=== PATIENT | female | born 1925 | race Caucasian/White ===

== ENCOUNTER 2016-10-02 08:41 | Day surgery (SDC) | payer MEDICARE, BC ==
[2016-09-27 12:03] LABS: HEMATOCRIT 40.1 % (36.0-48.0); HEMOGLOBIN 12.9 g/dL (12.0-16.0)
[2016-09-27 13:24] LABS: A/G RATIO 1.1 (0.7-1.9); ALBUMIN 3.6 G/DL (3.5-5.0); ALKALINE PHOSPHATASE 74 U/L (45-117); CALCIUM, SERUM 9.1 MG/DL (8.5-10.4); CHLORIDE, SERUM 102 MMOL/L (96-112); CO2 (CARBON DIOXIDE) 31 MMOL/L (24-34); CREATININE 0.97 MG/DL (0.55-1.02); GFR AFRICAN AMERICAN 60 ML/MIN (>=60); GFR NON AFRICAN AMERICAN 52 ML/MIN (>=60); GLOBULIN 3.4 G/DL (2.5-4.1); GLUCOSE, SERUM 97 MG/DL (60-99); SGOT(AST) 21 U/L (5-40); SGPT(ALT) 18 U/L (5-65); SODIUM, SERUM 142 MMOL/L (135-148); TOTAL BILIRUBIN 1.1 MG/DL (0-1.2)
[2016-09-27 13:26] LABS: BUN (BLOOD UREA NITROGEN) 21 MG/DL (6-23); POTASSIUM, SERUM 4.9 MMOL/L (3.5-5.3)
--- NOTE | ~2016-10-02 | OP ---
Record Of Operation [facility] [address] [place]. [address] NAME: GRAEME LU : [birth year] STATUS : [facility]#: [id number] AGE: 89 ADM/REG DATE : 10/02/16 MR#: [id number] REPORT SERV DATE: 10/03/16 DICTATED BY: ROEL HOROWITZ JR. DATE: 10/02/16 REPORT STATUS : Draft TRANSCRIBED BY: TIMMY DATE: 10/02/16 DATE OF PROCEDURE: 10/02/2016 REASON FOR SURGERY: This 89-year-old patient presents with a history of having had a lesion in her left breast initially seen on CT scan. It was small and initially not seen on ultrasound but had a small mammographic density. Followup showed stability a year's time. Two years past and new mammogram showed some progression. 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 This makes it intermediate grade but still should be favorable tumor with minimal chance of impact on her survival, especially considering her active cardiopulmonary disease. PREOPERATIVE DIAGNOSIS: Carcinoma, left breast. POSTOPERATIVE DIAGNOSIS: Carcinoma, left breast. SURGEON: Roel Horowitz M.D. SURGERY PERFORMED: Left breast segmentectomy. PROCEDURE IN DETAIL: Under general anesthesia, the patient was prepped and draped in supine position in the usual sterile fashion. A curvilinear incision was made over the palpable mass in the lower outer quadrant on the left. Flaps were elevated in each direction and a 4 cm sphere of tissue was removed and oriented for pathology. I had attended the initial sectioning in the superficial 12 o'clock to 3 o'clock. Superficial 3 o'clock margin was somewhat close. Clear margin is evident but it is hoped to avoid postoperative radiation therapy, and therefore, an additional disc of tissue from 12 o'clock to 4 o'clock was taken measuring 3.5 x 3.5 x 0.5 cm. It involves basically one-third of the wall of the previous cavity. It was removed and oriented for pathology. The wound was irrigated. Hemostasis was obtained. The wound was closed with two layers of Monocryl. The patient tolerated the procedure well without complications. ESTIMATED BLOOD LOSS: 5 mL. SPONGE COUNT: Correct. MR/TIMMY Roel Horowitz Jr., M.D. / [id number] CC: Record Of Operation [facility] [address] [place]. [address] NAME: GRAEME LU : [birth year] STATUS : [facility] PAT#: [id number] AGE: 89 ADM/REG DATE : 10/02/16 MR#: [id number] REPORT SERV DATE: 10/03/16 DICTATED BY: ROEL HOROWITZ JR. DATE: 10/02/16 REPORT STATUS : Draft TRANSCRIBED BY: RADHAL DATE: 10/02/16 Geeta Diaz Jr., M.D. Dannis Hood Jr., M.D. Joshua Willis, M.D. Michael T Czarnecki, M.D.
[~2016-10-02 08:41] MED LIST: ALLEGRA180 PO; ASABAYER PO; BILBERRY500 MG PO; BRIMONIDINE0.2 % OPH; COZ50 PO; DEMA20 PO; DEMADEX5 MG PO; DIOVAN320 MG PO; DORZOLAMIDE2 % OP; KLOR-CON M2020 MEQ PO; NORV5 PO; PERFOROM INH; PRAVAC PO; TRUSOPT2 % OPH; ULTRAM50 PO; VITAMIN D31000 UNIT PO; VITC500 PO; XALAT OPH
[2016-10-02 09:22] LABS: BASOPHILS 0.3 %; BASOPHILS ABSOLUTE 0.02 10/3/uL (0.0-0.16); EOSINOPHILS 0.9 %; EOSINOPHILS ABSOLUTE 0.06 10/3/uL (0.0-0.53); HEMATOCRIT 40.6 % (36.0-48.0); HEMOGLOBIN 13.7 g/dL (12.0-16.0); IMMATURE GRANULOCYTES 0.1 %; IMMATURE GRANULOCYTES ABSOLUTE 0.01 10/3/uL (0.0-0.11); LYMPHOCYTES 18.4 %; LYMPHOCYTES ABSOLUTE 1.24 10/3/uL (0.67-4.30); MANUAL DIFF NO %; MEAN CORPUS HGB CONC 33.7 g/dL (32.0-36.0); MEAN CORPUSCULAR HEMOGLOB 31.6 pg (26.0-34.0); MEAN CORPUSCULAR VOLUME 93.8 fL (80-100); MEAN PLATELET VOLUME 9.4 fL (9.2-13.0); MONOCYTES 8.2 %; MONOCYTES ABSOLUTE 0.55 10/3/uL (0.21-1.20); NEUTROPHILS 72.1 %; NEUTROPHILS ABSOLUTE 4.85 10/3/uL (2.02-8.40); PLATELET COUNT 169 10/3/uL (150-400); RBC DISTRIBUTION WIDTH 14.3 % (12.0-16.0); RED CELL COUNT 4.33 10/6/uL (4.0-5.6); WHITE BLOOD CELLS 6.7 10/3/uL (4.5-10.5)
== END 2016-10-02 13:43 | disposition home or self-care (01) ==
LOC: SDC 08:41
PROVIDERS: Surgery Surgical Oncology
PROC: 0HBU0ZZ Excision of Left Breast, Open Approach (ICD-10-PCS; principal; 2016-10-02 09:45)
DX: C50.512 Malignant neoplasm of lower-outer quadrant of left female breast (principal); I11.0 Hypertensive heart disease with heart failure; I50.9 Heart failure, unspecified; I48.91 Unspecified atrial fibrillation; Z88.5 Allergy status to narcotic agent; Z98.41 Cataract extraction status, right eye; Z98.42 Cataract extraction status, left eye; Z98.890 Other specified postprocedural states
CPT/HCPCS: 71020; 80053; 85014; 85018; 85025; 88305; 88307; 93005; A9270-GY; J0690; J2270; J2405; J3010